=== PATIENT | female | born 1995 | race African-American/Black ===

== ENCOUNTER 2021-11-21 11:55 | Inpatient (IN) | payer OTHER ==
[2021-11-21 14:32] VITALS: BMI 38.9
[2021-11-21 15:18] LABS: BASO % 0.6 % (0-2.0); EOS % 0.9 % (0-4.5); HEMATOCRIT 36.6 % (32.4-45.2); HEMOGLOBIN 12.4 GM/dL (10.7-15.3); MCH 31.3 pg (25.7-33.7); MCHC 33.9 g/dl (32.0-36.0); MEAN CELL VOLUME 92.3 fl (80-96); MEAN PLT VOLUME 8.9 fl (7.5-11.1); MONO % 9.6 % (3.8-10.2); NEUT % 67.9 % (42.8-82.8); PLATELET COUNT 180 10^3/uL (134-434); RBC 3.96 M/mm3 (3.60-5.2); RDW 14.1 % (11.6-15.6); WHITE BLOOD COUNT 7.9 K/mm3 (4.0-10.0)
[2021-11-21 15:29] LABS: INR 1.08 (0.83-1.09); PROTHROMBIN TIME (PATIENT) 12.4 SEC (9.7-13.0)
[2021-11-21 15:32] LABS: ACTIVATED PTT 30.6 SECONDS (25.2-36.5)
[2021-11-21 15:36] LABS: CALCIUM 9.1 mg/dL (8.5-10.1)
[2021-11-21 15:37] LABS: BLOOD UREA NITROGEN 6.3 mg/dL (7-18)
[2021-11-21 15:40] LABS: CREATININE 0.7 mg/dL (0.55-1.3)
[2021-11-21] MEDS ORDERED: BETAMET ACET/BETAMET NA PH 30 MG/5 ML VIAL ONE (16:13)
[2021-11-21 16:30] LABS: HIV INTERPRETATION NEGATIVE (NEGATIVE)
[2021-11-21] MEDS ORDERED: BETAMET ACET/BETAMET NA PH 30 MG/5 ML VIAL IM ONE (16:37)
[2021-11-21] MEDS ORDERED: BUTORPHANOL TARTRATE 2 MG/ML VIAL IVPUSH ONE (16:56)
[2021-11-21] MEDS ORDERED: PROMETHAZINE HCL 25 MG/1 ML VIAL IVPUSH ONE (16:57)
[2021-11-21] MEDS ORDERED: OXYTOCIN 30 UNITS in 0.9% NS 30 UNIT/500 ML INFUS.BAG IVPB SCH (17:00)
[2021-11-21] MEDS: ELECTROLYTE-148 SOLN 1,000 ML IV SCH (17:15)
[2021-11-21] MEDS: VANCOMYCIN 1 GM/200 ML PREMIX BAG IVPB SCH (17:25)
[2021-11-21] MEDS ORDERED: OXYTOCIN 30 UNITS in 0.9% NS 30 UNIT/500 ML INFUS.BAG IVPB ONE (20:19)
[2021-11-21] MEDS ORDERED: ACETAMINOPHEN 325 MG TABLET (FP) ONE (22:05)
[2021-11-21] MEDS ORDERED: ACETAMINOPHEN 325 MG TABLET (FP) PO ONE (23:15)
[2021-11-22] MEDS: VANCOMYCIN 1 GM/200 ML PREMIX BAG IVPB SCH ×2 (01:00→09:00)
[2021-11-22] MEDS ORDERED: PROMETHAZINE HCL 25 MG/1 ML VIAL ONE (02:14)
[2021-11-22] MEDS ORDERED: BUTORPHANOL TARTRATE 2 MG/ML VIAL ONE (02:14)
[2021-11-22] MEDS: ELECTROLYTE-148 SOLN 1,000 ML IV SCH (04:15)
[2021-11-22] MEDS ORDERED: CITRIC ACID/SODIUM CITRATE 30 ML UNIT-DOSE CUP PO ONE (08:00)
[2021-11-22] MEDS ORDERED: morphine SULFATE/PF 1 MG/2 ML (2cc Syringe - QUVA) ONE (08:21)
[2021-11-22] MEDS ORDERED: MIDAZOLAM HCL 2 MG/2 ML SINGLE DOSE VIAL ONE (08:43)
[2021-11-22] MEDS ORDERED: KETOROLAC TROMETHAMINE 30 MG/1 ML VIAL ONE (08:54)
[2021-11-22] MEDS ORDERED: CLINDAMYCIN PHOSPHATE 600 MG/4 ML VIAL ONE (08:54)
[2021-11-22] MEDS ORDERED: OXYTOCIN 10 UNITS/ML VIAL ONE (08:54)
[2021-11-22] MEDS ORDERED: ONDANSETRON 4 MG/2 ML VIAL ONE (08:54)
[2021-11-22] MEDS ORDERED: PHENYLEPHRINE HCL 10 MG/1 ML SINGLE DOSE VIAL ONE (08:54)
[2021-11-22] MEDS ORDERED: ePHEDrine SULFATE 50 MG/1 ML AMPULE ONE (08:55)
[2021-11-22] MEDS ORDERED: ACETAMINOPHEN 325 MG TABLET (FP) PO PRN (09:57)
[2021-11-22] MEDS ORDERED: ONDANSETRON 4 MG/2 ML VIAL IVPB PRN (09:57)
[2021-11-22] MEDS ORDERED: OXYTOCIN 20 UNITS in 0.9% NS 20 UNIT/1,000 ML INFUS.BAG IV SCH (10:00)
[2021-11-22] MEDS ORDERED: ONDANSETRON 4 MG/2 ML VIAL IVPUSH PRN (10:13)
[2021-11-22 10:15] LABS: CORD HCO3 22.3 mmHg (20-29); CORD PCO2 52.4 mmHg (30-78); CORD pH 7.247 (7.14-7.44)
[2021-11-22] MEDS ORDERED: LACTATED RINGERS SOLUTION 1,000 ML IV SCH (10:15)
[2021-11-22] MEDS ORDERED: ACETAMINOPHEN 1000 MG/100 ML BAG IVPB ONE (10:15)
[2021-11-22 10:19] LABS: CORD BASE EXCESS -6.4 mmol/L (0-2); CORD HCO3 18.5 mmHg (20-29); CORD PCO2 35.6 mmHg (30-78); CORD pH 7.334 (7.14-7.44)
[2021-11-22] MEDS ORDERED: morphine SULFATE/PF 1 MG/2 ML (2cc Syringe - QUVA) EP ONE (10:30)
[2021-11-22] MEDS ORDERED: ACETAMINOPHEN INJECTION 100 ML IVPB ONE (11:20)
[2021-11-22] MEDS ORDERED: OXYTOCIN 20 UNITS in 0.9% NS 20 UNIT/1,000 ML INFUS.BAG IV ONE (11:20)
[2021-11-22 12:08] LABS: SARS-CoV-2 NAA Not Detected (Not Detected)
[2021-11-22] MEDS: ACETAMINOPHEN 1000 MG/100 ML BAG IVPB PRN ×2 (18:21→23:24)
[2021-11-22] MEDS: SENNOSIDES/DOCUSATE COMBO (SENNA PLUS) TABLET (UD) PO PRN (23:25)
[2021-11-22] MEDS: SIMETHICONE 80 MG TAB.CHEW (FP) PO PRN (23:25)
[2021-11-23] MEDS: ACETAMINOPHEN 1000 MG/100 ML BAG IVPB PRN (06:49)
[2021-11-23 07:23] LABS: BASO % 0.2 % (0-2.0); EOS % 0.3 % (0-4.5); HEMATOCRIT 31.9 % (32.4-45.2); HEMOGLOBIN 10.9 GM/dL (10.7-15.3); LYMPH % 13.9 % (8-40); MCH 31.8 pg (25.7-33.7); MCHC 34.3 g/dl (32.0-36.0); MEAN CELL VOLUME 92.8 fl (80-96); MONO % 7.8 % (3.8-10.2); NEUT % 77.8 % (42.8-82.8); PLATELET COUNT 176 10^3/uL (134-434); RBC 3.44 M/mm3 (3.60-5.2); RDW 14.3 % (11.6-15.6); WHITE BLOOD COUNT 15.2 K/mm3 (4.0-10.0)
[2021-11-23 08:01] LABS: POC NITRAZINE POS
[2021-11-23] MEDS ORDERED: BISACODYL 10 MG SUPP.RECT RC PRN (09:58)
[2021-11-23] MEDS: SIMETHICONE 80 MG TAB.CHEW (FP) PO PRN ×3 (13:23→22:43)
[2021-11-23] MEDS: oxyCODONE HCL 5 MG TABLET PO PRN ×2 (14:37→22:59)
[2021-11-23] MEDS: ACETAMINOPHEN 325 MG TABLET (FP) PO PRN (18:22)
[2021-11-23] MEDS: SENNOSIDES/DOCUSATE COMBO (SENNA PLUS) TABLET (UD) PO PRN (22:43)
[2021-11-24] MEDS: SIMETHICONE 80 MG TAB.CHEW (FP) PO PRN ×3 (06:43→19:04)
[2021-11-24] MEDS: oxyCODONE HCL 5 MG TABLET PO PRN (06:49)
[2021-11-24] MEDS: ACETAMINOPHEN 325 MG TABLET (FP) PO PRN (08:49)
[2021-11-24] MEDS: ACETAMINOPHEN 500 MG TABLET (FP) PO SCH ×2 (14:06→22:02)
[2021-11-24] MEDS ORDERED: oxyCODONE HCL 5 MG TABLET PO PRN (16:22)
[2021-11-24] MEDS ORDERED: SENNOSIDES/DOCUSATE COMBO (SENNA PLUS) TABLET (UD) PO SCH (22:00)
[2021-11-25] MEDS: SIMETHICONE 80 MG TAB.CHEW (FP) PO PRN (03:02)
[2021-11-25] MEDS: ACETAMINOPHEN 500 MG TABLET (FP) PO SCH ×2 (03:02→08:53)
[2021-11-25 08:57] VITALS: BP 138/83; PULSE 83; TEMP 97.8
== END 2021-11-25 14:30 | disposition home or self-care (01) | DRG 540 ==
LOC: JDEL 11:55 → JLDR 12:55 → J3W 11-22 11:40
PROVIDERS: ADMIT Family Medicine; ATTEND Family Medicine
PROC: 10D00Z1 Extraction of Products of Conception, Low, Open Approach (ICD-10-PCS; principal; 2021-11-22)
DX: O42.913 Preterm premature rupture of membranes, unspecified as to length of time between rupture and onset of labor, third trimester (principal); O99.344 Other mental disorders complicating childbirth; F20.9 Schizophrenia, unspecified; O61.0 Failed medical induction of labor; O99.214 Obesity complicating childbirth; E66.01 Morbid (severe) obesity due to excess calories; O99.02 Anemia complicating childbirth; D62 Acute posthemorrhagic anemia; Z3A.35 35 weeks gestation of pregnancy; Z37.0 Single live birth; O75.89 Other specified complications of labor and delivery; D72.829 Elevated white blood cell count, unspecified
CPT/HCPCS: 36415; 36600; 59025; 80048; 82803; 83986-QW; 85025; 85610; 85730; 86780; 86850; 86900; 86901; 87081; 87086; 87110; 87389; 88307-TC; 96372; C9803-CS; U0003; U0005